=== PATIENT | male | born 1945 | race Two or more races ===

== ENCOUNTER 2020-05-07 23:48 | Inpatient (IN) | payer MEDICARE, OTHER ==
[~2020-05-07] VITALS: Ht 170.2 cm; Wt 84.0 kg
[2020-05-07 23:50] VITALS: BP 90/41
--- NOTE | 2020-05-08 00:05 | Emergency Room Report ---
History of Present Illness General Chief Complaint: Generalized Weakness Source: Patient, EMS Present Illness HPI This is a 75-year-old male with a history of high blood pressure but not on blood pressure medication. He also history of diabetes and renal failure on hemodialysis. Dialysis days are Friday, Friday, and Friday. He presents with chief complaint of weakness and hypotension. Per EMS, his house is very hot. Patient does not have air conditioning. Patient complained of generalized weakness. No fever chills but no cough or congestion. Said his blood pressure was low. EMS said his blood pressure was systolic in the 90s at home. Allergies: Coded Allergies: No Known Allergies (Unverified , 05/07/20) COVID-19 Screening Contact w/high risk pt: No Experienced COVID-19 symptoms?: No COVID-19 Testing performed IMPORT/EXPORT ADMINISTRATOR: No Patient History Past Medical History: see triage record, old chart reviewed, DM, HTN, renal disease, dialysis Past Surgical History: other Pertinent Family History: none Social History: Denies: smoking Immunizations: other Reviewed Nursing Documentation: PMH: Agreed; PSxH: Agreed Nursing Documentation-PMH Hx Cardiac Problems: Yes Hx Hypertension: Yes Hx Diabetes: Yes Hx Dialysis: Yes - T, TR, sat Review of Systems Constitutional: Reports: malaise, weakness Eye: Denies: eye pain, blurred vision ENT: Denies: ear pain, nose congestion, throat swelling Respiratory: Denies: cough, shortness of breath Cardiovascular: Denies: chest pain, palpitations Gastrointestinal: Denies: abdominal pain, diarrhea, nausea, vomiting Musculoskeletal: Denies: back pain, joint pain Skin: Denies: rash Neurological: Denies: headache, numbness Endocrine: Denies: increased thirst, increased urine Hematologic/Lymphatic: Denies: easy bruising All Other Systems: negative except mentioned in HPI Physical Exam Vital Signs Date Time Temp Pulse Resp B/P (MAP) Pulse Ox O2 Delivery O2 Flow Rate FiO2 05/07/20 23:47 98.6 60 14 96/48 (64) 92 Nasal Cannula 2.0 Vitals with hypotension Sp02 EP Interpretation: reviewed, normal General Appearance: well appearing, no apparent distress, alert, Chronically Ill Head: normocephalic, atraumatic Eyes: bilateral eye PERRL, bilateral eye EOMI ENT: hearing grossly normal, normal pharynx Neck: full range of motion, supple, no meningismus Respiratory: chest non-tender, lungs clear, normal breath sounds Cardiovascular #1: regular rate, rhythm, no murmur Gastrointestinal: normal bowel sounds, non tender, no mass, no organomegaly, no bruit, non-distended Musculoskeletal: back normal, normal range of motion Psychiatric: mood/affect normal Medical Decision Making Diagnostic Impression: Primary Impression: Episode of generalized weakness Additional Impressions: Heat exhaustion Qualified Codes: T67.5XXA - Heat exhaustion, unspecified, initial encounter Transient hypotension ESRD (end stage renal disease) on dialysis ER Course Patient presents with generalized weakness and transient hypotension. There is no evidence of any infection going on. His blood pressure is now 108/50 5:02 100 cc IV bolus. He is 100% on room air. COVID testing is negative. I suspect this symptom is secondary to heat exhaustion. We're in the midst of a very strong heat wave with temperature over 100 degree. He has no air conditioning. EMS said his house was extremely hot. He said he felt better here. Will admit for monitoring. He is scheduled for dialysis tomorrow. I contacted Dr. Forrest for admission. EKG Diagnostic Results Rate: normal Rhythm: NSR ST Segments: no acute changes Rhythm Strip Diag. Results EP Interpretation: yes Rate: 73 Rhythm: NSR, no PVC's, no ectopy Chest X-Ray Diagnostic Results Chest X-Ray Diagnostic Results : Chest X-Ray Ordered: Yes # of Views/Limited/Complete: 1 View Indication: Shortness of Breath EP Interpretation: Yes Interpretation: no consolidation, no effusion, no pneumothorax, other - Cardiomegaly with atelectasis Impression: Other - CM with atelectasis Electronically Signed by: Mahin Osullivan MD Last Vital Signs Date Time Temp Pulse Resp B/P (MAP) Pulse Ox O2 Delivery O2 Flow Rate FiO2 05/07/20 23:47 98.6 60 14 96/48 (64) 92 Nasal Cannula 2.0 Status: improved Disposition: ADMITTED INPATIENT Condition: Serious Mahin Osullivan MD May 08, 2020 00:04
[2020-05-08 00:22] LABS: BASOPHILS % (AUTO) 1.3 % (0.0-2.0); EOSINOPHILS % (AUTO) 0.3 % (0.0-3.0); HEMATOCRIT 37.4 % (42.0-52.0); HEMOGLOBIN 11.5 G/DL (14.2-18.0); LYMPHOCYTES % (AUTO) 23.8 % (20.0-45.0); MEAN CORPUSCULAR VOLUME 106 FL (80-99); MONOCYTES % (AUTO) 13.4 % (1.0-10.0); NEUTROPHILS % (AUTO) 61.2 % (45.0-75.0); PLATELET COUNT 304 K/UL (150-450); RED BLOOD COUNT 3.53 M/UL (4.70-6.10); WHITE BLOOD COUNT 8.3 K/UL (4.8-10.8)
[2020-05-08 00:26] LABS: ANION GAP 12 mmol/L (5-15); BLOOD UREA NITROGEN 40 mg/dL (7-18); CALCIUM 8.1 MG/DL (8.5-10.1); CARBON DIOXIDE 28 MMOL/L (21-32); CHLORIDE 103 MMOL/L (98-107); CREATININE 8.2 MG/DL (0.55-1.30); POTASSIUM 4.2 MMOL/L (3.5-5.1); SODIUM 143 MMOL/L (136-145)
[2020-05-08] MEDS ORDERED: PLAVIX75 MG ORAL (01:42)
[2020-05-08] MEDS ORDERED: ADALAT10 MG ORAL (01:43)
[2020-05-08] MEDS ORDERED: DOXAZOSIN MESYLA1 MG ORAL (01:45)
[2020-05-08] MEDS ORDERED: METFORMIN HCL500 M1 ORAL (01:47)
[2020-05-08 04:13] VITALS: BP 112/53
--- NOTE | 2020-05-08 06:32 | Diagnostic Imaging Report ---
EXAM: XR Chest, 1 View CLINICAL HISTORY: SOB TECHNIQUE: Frontal view of the chest. COMPARISON: No relevant prior studies available. FINDINGS/IMPRESSION: Linear metal atelectasis within the left midlung field. Poor inspiration which accentuates bronchovascular marking and cardiac silhouette size. No definite pleural effusion or pneumothorax. Cardiomegaly. Calcified aorta.
[2020-05-08 08:00] VITALS: BP 88/46
[2020-05-08] MEDS: Heparin 5000 units/ml inj SUBQ SCH ×2 (08:43→20:43)
[2020-05-08] MEDS ORDERED: Doxazosin 1mg Tab ORAL SCH (09:00)
[2020-05-08] MEDS ORDERED: metFORMIN 500mg tab ORAL SCH (09:00)
--- NOTE | 2020-05-08 10:00 | History and Physical Report ---
DATE OF ADMISSION: 05/08/2020 CHIEF COMPLAINT: Dizziness and dehydration. HISTORY OF PRESENT ILLNESS: The patient is a 75-year-old male. He has a history of end-stage renal disease, on hemodialysis for the last month. He presented from home with complaints of generalized malaise and weakness. He states that he does not have air conditioning, his house has been incredibly hot. He last received dialysis on Friday. He was noted to be hypotensive in the field. In the ER, he was 96/48. He was felt to have possibly early heat stroke. He was given IV hydration and is now admitted for further evaluation and care. PAST MEDICAL HISTORY: As above, history of diabetes. PAST SURGICAL HISTORY: None, except for a left upper extremity AV fistula. CURRENT MEDICATIONS: The patient does not recall. ALLERGIES: None. FAMILY HISTORY: None. SOCIAL HISTORY: Negative for tobacco, ethanol, or drugs. REVIEW OF SYSTEMS: GENERAL: No fevers or chills. Positive malaise and weakness. HEENT: No headaches or visual changes. CARDIOPULMONARY: No chest pain or shortness of breath. GASTROINTESTINAL: No nausea or vomiting. GENITOURINARY: No urgency or frequency. MUSCULOSKELETAL: No joint pain or swelling. NEUROLOGIC: No evidence of seizures. PHYSICAL EXAMINATION: VITAL SIGNS: Temperature 98.6, pulse 60, respirations 14, and blood pressure 96/48. GENERAL: The patient is a well-developed male, in no apparent distress. He is somewhat drowsy, but is easily arousable and does answer questions and follow commands. HEENT: Head is normocephalic and atraumatic. Oropharynx clear. Mucous membranes are dry. NECK: Supple. HEART: Regular rate and rhythm. LUNGS: Clear. ABDOMEN: Soft, nontender and nondistended. EXTREMITIES: No clubbing or cyanosis. There is a large wound on the left first toe as well as on the left lee. LABORATORY DATA: Sodium 142, potassium 4.2, creatinine 8.2. White count 8, hemoglobin 11, hematocrit 37, and platelets 304,000. ASSESSMENT: This is a 75-year-old male with a history of end-stage renal disease, admitted with complaints of dehydration, possible early heat stroke. PLAN: 1. Cautious hydration. 2. Renal consultation. 3. X-ray of right foot and right leg. 4. Check vascular studies. 5. Podiatry consultation will be obtained. Ulises Forrest M.D. DR: Devan JOB#: [id number] CC:
[2020-05-08 12:00] VITALS: BP 89/41
[2020-05-08] MEDS ORDERED: NIFEdipine 10mg cap ORAL SCH (12:00)
[2020-05-08] MEDS: NIFEdipine 10mg cap ORAL SCH ×2 (12:00→17:28)
--- NOTE | 2020-05-08 12:09 | Diagnostic Imaging Report ---
EXAM: US Duplex Bilateral Lower Extremities Arteries CLINICAL HISTORY: Pain TECHNIQUE: Real-time duplex ultrasound scan of the bilateral lower extremity arteries integrating B-mode two-dimensional vascular structure, Doppler spectral analysis and color flow Doppler imaging. COMPARISON: None FINDINGS: Diffuse atherosclerosis in the visualized arterial segments throughout bilateral lower extremities. Right common femoral artery: No occlusion or significant stenosis on color flow and spectral Doppler imaging. Peak systolic velocity of 56 cm/s. Normal multiphasic waveform. Right superficial femoral artery: No occlusion or significant stenosis on color flow and spectral Doppler imaging. Peak systolic velocity of 64 cm/s. Normal multiphasic waveform. Right popliteal artery: No occlusion or significant stenosis on color flow and spectral Doppler imaging. Peak systolic velocity of 58 cm/s. Normal multiphasic waveform. Right calf/foot arteries: Right calf/foot were completely covered with dressings and unable to evaluate. Left common femoral artery: No occlusion or significant stenosis on color flow and spectral Doppler imaging. Peak systolic velocity of 54 cm/s. Normal multiphasic waveform. Left superficial femoral artery: No occlusion or significant stenosis on color flow and spectral Doppler imaging. Peak systolic velocity of 68 cm/s. Normal multiphasic waveform. Left popliteal artery: No occlusion or significant stenosis on color flow and spectral Doppler imaging. Peak systolic velocity of 40 cm/s. Normal multiphasic waveform. Left calf/foot arteries: No occlusion or significant stenosis on color flow and spectral Doppler imaging. Monophasic waveform. Soft tissues: Unremarkable. Degree of stenosis-estimate 30-50%: 150-200 cm/s 50-75%: 200-400 cm/s >75%: >400 cm/s and monophasic waveform IMPRESSION: 1. Diffuse atherosclerosis in bilateral lower extremities, consistent with peripheral vascular disease. No significant focal stenosis in the visualized arterial segments bilaterally. 2. Unable to evaluate the right calf/foot arteries since the right lower extremity was completely covered in dressings and communications field technician was unable to image the calf/foot vessels.
[2020-05-08 16:00] VITALS: BP 101/52
[2020-05-08] MEDS: HYDROcodone/Acetamin 10/325 tab ORAL PRN (17:51)
[2020-05-08 19:52] VITALS: BP 103/51
--- NOTE | 2020-05-08 20:00 | Consultation ---
DATE OF CONSULTATION: 05/08/2020 NEPHROLOGY CONSULTATION CONSULTING PHYSICIAN: Quinn Marcano MD. REASON FOR CONSULTATION: End-stage renal disease, episode of hypotension. HISTORY OF PRESENT ILLNESS: Patient has end-stage renal disease, on dialysis with a history of diabetes and peripheral vascular disease and ischemic toe on the right foot. He has had prior PCI to the right leg arterial system. He has a history of prior [place] about 5 years ago and a prior CVA. He is a poor historian. Records are reviewed from [facility]. He has also had paroxysmal atrial fibrillation, hypothyroidism, diabetes. ALLERGIES: None known. PAST SURGICAL HISTORY: Left upper arm AV fistula, PCI to the right leg. HABITS: He is a former heavy alcohol user. Quit a few years ago. Denies smoking. MEDICATIONS: Cannot give an adequate medications list. From the hospitalization in September of this year at [facility], he was on amiodarone, Plavix, DSS, Lexapro, Synthroid, nifedipine, and Tradjenta. He is not sure if he takes all or some of these currently. SYSTEM REVIEW: HEAD, EYES, EARS, NOSE, AND THROAT: He states his vision and hearing is good. ENDOCRINE: Diabetes and hypothyroidism as above. PULMONARY: No asthma, TB, or chronic cough. CARDIAC: Prior FL. No current chest pain. No shortness of breath or palpitations. He has had paroxysmal atrial fibrillation in the past. GASTROINTESTINAL: Denies GI bleeding, nausea or vomiting. However, he had generalized weakness and was exposed to a very hot weather without air conditioning at home. GENITOURINARY: He makes little urine. NEUROLOGIC: He had a prior CVA with minimal residual. PHYSICAL EXAMINATION: GENERAL: Patient is alert, obese man, lying in bed, in no acute distress. VITAL SIGNS: Temperature 97.8, pulse 57, respirations 20, blood pressure 89/41. HEAD, EYES, EARS, NOSE, AND THROAT: Sclerae are nonicteric. Ocular motions intact in all directions. Oral mucosa is moist. NECK: No adenopathy. LUNGS: Clear. HEART: Rhythm is regular. I hear no murmur. ABDOMEN: Obese and soft. No organomegaly. EXTREMITIES: No edema. The right leg has a large bulky dressing with the right great toe has ulcer about 1 to 1-1/2 centimeters with some skin necrosis. He has an AV fistula on his left arm. NEUROLOGIC: He is alert and responsive. No focal weakness. LABORATORY DATA: Reviewed. IMPRESSION: 1. End-stage renal disease. 2. Hypotensive episode, likely due to nifedipine plus heat exposure, mild dehydration improving. 3. History of paroxysmal atrial fibrillation. 4. History of coronary artery disease. 5. History of peripheral vascular disease. 6. History of diabetes. PLAN: All laboratories are reviewed. We will anticipate that his blood pressure will improve with holding of antihypertensive medications for now and he appears to be euvolemic. Dialysis as scheduled. We will resume his amiodarone and Plavix and Synthroid. Quinn Marcano M.D. DR: ALFONSO JOB#: [id number] CC:
[2020-05-09] VITALS: BP 106/52
[2020-05-09 04:00] VITALS: BP 109/54
[2020-05-09] MEDS: sitaGLIPtin 25mg tab ORAL SCH (05:37)
[2020-05-09] MEDS ORDERED: Heparin Sod 1000 units/ml 10ml IV SCH (06:00)
[2020-05-09 07:16] LABS: ALANINE AMINOTRANSFERASE 27 U/L (12-78); ALBUMIN 2.6 G/DL (3.4-5.0); ALBUMIN/GLOBULIN RATIO 0.5 (1.0-2.7); ALKALINE PHOSPHATASE 54 U/L (46-116); ANION GAP 12 mmol/L (5-15); ASPARTATE AMINO TRANSFERASE 58 U/L (15-37); BILIRUBIN,TOTAL 1.1 MG/DL (0.2-1.0); BLOOD UREA NITROGEN 54 mg/dL (7-18); CARBON DIOXIDE 27 MMOL/L (21-32); CHLORIDE 103 MMOL/L (98-107); CREATININE 10.9 MG/DL (0.55-1.30); POTASSIUM 4.5 MMOL/L (3.5-5.1); SODIUM 142 MMOL/L (136-145)
[2020-05-09 07:26] LABS: BILIRUBIN,DIRECT 0.5 MG/DL (0.0-0.3)
--- NOTE | 2020-05-09 07:39 | General Progress Note ---
Assessment/Plan Problem List: (1) Foot ulcer ICD Codes: L97.509 - Non-pressure chronic ulcer of other part of unspecified foot with unspecified severity SNOMED: 59129420 (2) ESRD (end stage renal disease) on dialysis ICD Codes: N18.6 - End stage renal disease; Z99.2 - Dependence on renal dialysis SNOMED: 559480223 (3) Heat exhaustion ICD Codes: T67.5XXA - Heat exhaustion, unspecified, initial encounter SNOMED: 31951249 Qualifiers: Qualified Codes: T67.5XXA - Heat exhaustion, unspecified, initial encounter (4) Episode of generalized weakness ICD Codes: R53.1 - Weakness SNOMED: 48495168 (5) Transient hypotension ICD Codes: I95.9 - Hypotension, unspecified SNOMED: 89778072304323 Status: stable Assessment/Plan: podiatry and wound evals dc cardura MRi toe- r/o osteo check orthostatics consider midodrine if bp low or orthostatic HD per renal check lipids and a1c Subjective ROS Limited/Unobtainable: No Constitutional: Reports: malaise, weakness HEENT: Reports: no symptoms Cardiovascular: Reports: no symptoms Respiratory: Reports: no symptoms Gastrointestinal/Abdominal: Reports: no symptoms Genitourinary: Reports: no symptoms Neurologic/Psychiatric: Reports: no symptoms Endocrine: Reports: no symptoms Hematologic/Lymphatic: Reports: no symptoms Allergies: Coded Allergies: No Known Allergies (Unverified , 05/07/20) All Systems: reviewed and negative except above Subjective no complaints. bp still running on the low side. no fevers or chills. no chest pain vascular studies normal. scheduled for HD today Objective Last 24 Hour Vital Signs Date Time Temp Pulse Resp B/P (MAP) Pulse Ox O2 Delivery O2 Flow Rate FiO2 05/09/20 04:00 98.5 61 18 109/54 (72) 94 05/09/20 00:00 98.5 60 18 106/52 (70) 93 05/08/20 21:00 Room Air 05/08/20 19:52 97.8 57 16 103/51 (68) 93 05/08/20 18:21 98.4 05/08/20 17:28 58 101/52 05/08/20 16:00 98.4 58 21 101/52 (68) 97 05/08/20 12:00 57 89/41 05/08/20 12:00 97.8 57 20 89/41 (57) 97 05/08/20 09:00 Room Air 05/08/20 08:00 98.3 57 21 88/46 (60) 97 Intake and Output 05/08/20 05/09/20 19:00 07:00 Intake Total 1020 ml 200 ml Output Total 3 ml 400 ml Balance 1017 ml -200 ml Intake Oral 1020 ml 200 ml Output Urine Total 3 ml 400 ml # Bowel Movements 2 Laboratory Tests 05/09/20 04:50: Sodium Level 142, Potassium Level 4.5, Chloride Level 103, Carbon Dioxide Level 27, Anion Gap 12, Blood Urea Nitrogen 54H, Creatinine 10.9H, Estimat Glomerular Filtration Rate 4.6, Glucose Level 66L, Calcium Level 8.0L, Total Bilirubin 1.1H , Direct Bilirubin 0.5H, Aspartate Amino Transf (AST/SGOT) 58H, Alanine Aminotransferase (ALT/SGPT) 27, Alkaline Phosphatase 54, Total Protein 7.8, Albumin 2.6L, Globulin 5.2, Albumin/Globulin Ratio 0.5L Height (Feet): 5 Height (Inches): 7.00 Weight (Pounds): 184 General Appearance: WD/WN, alert Neck: supple Cardiovascular: normal rate Respiratory/Chest: chest wall non-tender, lungs clear, normal breath sounds Abdomen: normal bowel sounds, non tender, soft, no organomegaly Edema: no edema noted Arm (L), no edema noted Arm (R) Neurologic: product expert II-XII grossly normal, alert, oriented x 3, responsive Skin: other - right 1st toe ulcer anbd right shink ulcer Ulises Forrest MD May 09, 2020 07:39
[2020-05-09 08:00] VITALS: BP_SYST 101; BP_SYST 102; BP_SYST 105; BP_SYST 112; BP_DIAS 50; BP_DIAS 55; BP_DIAS 65; BP_DIAS 71
[2020-05-09 08:21] LABS: CHOLESTEROL 109 MG/DL (< 200); HDL CHOLESTEROL 12 MG/DL (40-60); TRIGLYCERIDES 181 MG/DL (30-150)
[2020-05-09] MEDS: Heparin 5000 units/ml inj SUBQ SCH ×2 (08:53→20:57)
[2020-05-09] MEDS: Amiodarone 200mg tab ORAL SCH (08:53)
[2020-05-09] MEDS ORDERED: Doxazosin 1mg Tab ORAL SCH (09:00)
[2020-05-09] MEDS: HYDROcodone/Acetamin 10/325 tab ORAL PRN (10:01)
[2020-05-09 12:00] VITALS: BP 103/77
--- NOTE | 2020-05-09 12:35 | Consultation ---
History of Present Illness General Date patient seen: May 09, 2020 Reason for Hospitalization: Generalized Weakness Present Illness HPI This is a 75-year-old male with a history of HTN poorly controlled, diabetes and renal failure on hemodialysis Friday, Friday, and Friday. He presents with chief complaint of weakness and hypotension. Per EMS, his house is very hot. Patient does not have air conditioning. Patient complained of generalized weakness. No fever chills but no cough or congestion. Admitted for further care and management. On admission complaining of right lower extremity pain. Identified to have a large wound in the medial aspect of the right distal leg as well as necrosis of the distal great toe. Surgery called to eval and assist with care. Patient seen, patient [place], chart reviewed. Patient states he has a wound care nurse coming to his home caring for the wound. States he is out of for some time now. States he continues to have pain. Allergies: Coded Allergies: No Known Allergies (Unverified , 05/07/20) COVID-19 Screening Contact w/high risk pt: No Experienced COVID-19 symptoms?: No Medication History Scheduled Clopidogrel Bisulfate* (Plavix*), 75 MG ORAL DAILY, (Reported) Doxazosin Mesylate* (Doxazosin Mesylate*), 1 MG ORAL DAILY, (Reported) Metformin Hcl* (Metformin Hcl*), 500 MG ORAL TWICE A DAY, (Reported) Nifedipine (Nifedipine*), 10 MG ORAL EVERY 6 HOURS, (Reported) Patient History History Provided By: Patient, Medical Record, PMD Healthcare decision maker Resuscitation status Advanced Directive on File Past Medical/Surgical History Past Medical/Surgical History: (1) ESRD (end stage renal disease) on dialysis (2) Heat exhaustion (3) Foot ulcer (4) Episode of generalized weakness (5) Transient hypotension Review of Systems Review of Symptoms General ROS: no weight loss or fever Psychological ROS: no depression or mood changes, no memory loss Ophthalmic ROS: no visual changes or eye irritation ENT ROS: no nasal congestion, hearing loss, dizziness Allergy and Immunology ROS: no allergic symptoms or urticaria Hematological and Lymphatic ROS: no swollen glands, unusual bleeding or bruising Endocrine ROS: no polyuria, polydipsia, weight changes, temperature intolerance Respiratory ROS: no cough, shortness of breath, or wheezing Cardiovascular ROS: no chest pain or dyspnea on exertion Gastrointestinal ROS: denies abdominal pain, bright red blood in stool. Musculoskeletal ROS: no myalgias or arthralgias Neurological ROS: no TIA or stroke symptoms Dermatological ROS: no new or changing skin lesions, rashes or pruritis Physical Exam Physical Exam General appearance: alert, cooperative, no distress, appears stated age Head: Normocephalic, without obvious abnormality, atraumatic Eyes: conjunctivae/corneas clear. PERRL, EOM's intact. Fundi benign Throat: Lips, mucosa, and tongue normal. Teeth and gums normal Neck: supple, symmetrical, trachea midline, no adenopathy, thyroid: not enlarged, symmetric, no tenderness/mass/nodules, no carotid bruit and no JVD Lungs: clear to auscultation bilaterally Heart: regular rate and rhythm, S1, S2 normal, no murmur, click, rub or gallop Abdomen: soft, non-tender. Bowel sounds normal. No masses, no organomegaly Extremities: extremities see below Pulses:decreased symmetric Skin: Skin color, texture, turgor normal. No rashes or lesions Neurologic: Grossly normal Last 24 Hour Vital Signs Date Time Temp Pulse Resp B/P (MAP) Pulse Ox O2 Delivery O2 Flow Rate FiO2 05/09/20 12:00 97.1 72 21 103/77 (86) 97 05/09/20 10:31 98.7 05/09/20 09:00 75 66 65 05/09/20 09:00 Room Air 05/09/20 08:00 98.7 66 19 102/71 (81) 97 05/09/20 08:00 98.7 75 19 105/65 (78) 97 05/09/20 08:00 98.7 65 19 101/50 (67) 97 05/09/20 08:00 98.7 62 19 112/55 (74) 97 05/09/20 04:00 98.5 61 18 109/54 (72) 94 05/09/20 00:00 98.5 60 18 106/52 (70) 93 05/08/20 21:00 Room Air 05/08/20 19:52 97.8 57 16 103/51 (68) 93 05/08/20 17:28 58 101/52 05/08/20 16:00 98.4 58 21 101/52 (68) 97 Intake and Output 05/08/20 05/09/20 19:00 07:00 Intake Total 1020 ml 200 ml Output Total 3 ml 400 ml Balance 1017 ml -200 ml Intake Oral 1020 ml 200 ml Output Urine Total 3 ml 400 ml # Bowel Movements 2 Laboratory Tests Test 05/09/20 04:50 Sodium Level 142 MMOL/L (136-145) Potassium Level 4.5 MMOL/L (3.5-5.1) Chloride Level 103 MMOL/L (98-107) Carbon Dioxide Level 27 MMOL/L (21-32) Anion Gap 12 mmol/L (5-15) Blood Urea Nitrogen 54 mg/dL (7-18) H Creatinine 10.9 MG/DL (0.55-1.30) H Estimat Glomerular Filtration Rate 4.6 mL/min (>60) Glucose Level 66 MG/DL (74-106) L Hemoglobin A1c 5.4 % (4.3-6.0) Calcium Level 8.0 MG/DL (8.5-10.1) L Total Bilirubin 1.1 MG/DL (0.2-1.0) H Direct Bilirubin 0.5 MG/DL (0.0-0.3) H Aspartate Amino Transf (AST/SGOT) 58 U/L (15-37) H Alanine Aminotransferase (ALT/SGPT) 27 U/L (12-78) Alkaline Phosphatase 54 U/L (46-116) Total Protein 7.8 G/DL (6.4-8.2) Albumin 2.6 G/DL (3.4-5.0) L Globulin 5.2 g/dL Albumin/Globulin Ratio 0.5 (1.0-2.7) L Triglycerides Level 181 MG/DL (30-150) H Cholesterol Level 109 MG/DL (< 200) LDL Cholesterol 53 mg/dL (<100) HDL Cholesterol 12 MG/DL (40-60) L Cholesterol/HDL Ratio 9.1 (3.3-4.4) H Hepatitis B Surface Antigen Pending Height (Feet): 5 Height (Inches): 7.00 Weight (Pounds): 184 Medications Current Medications Medications (Trade) Dose Ordered Sig/Vinny Route PRN Reason Start Time Stop Time Status Last Admin Dose Admin Acetaminophen/ Hydrocodone Bitart ([place] 10/325) 1 tab Q4H PRN ORAL For Pain 05/08/20 06:30 05/15/20 06:29 05/09/20 10:01 Amiodarone HCl (Cordarone) 200 mg DAILY ORAL 05/09/20 09:00 08/07/20 08:59 05/09/20 08:53 Clopidogrel Bisulfate (Plavix) 75 mg DAILY ORAL 05/08/20 09:00 06/07/20 08:59 05/09/20 08:54 Heparin Sodium (Porcine) (Heparin 5000 units/ml) 5,000 units EVERY 12 HOURS SUBQ 05/08/20 09:00 06/22/20 08:59 05/09/20 08:53 Heparin Sodium (Porcine) (Heparin Sod 1000 units/ml 10ml) 500 unit ONCE IV 05/09/20 06:00 05/09/20 23:00 Levothyroxine Sodium (Synthroid) 50 mcg DAILY@0630 ORAL 05/09/20 06:30 06/08/20 06:29 05/09/20 05:37 Sitagliptin Phosphate (Januvia) 25 mg ACBREAKFAST ORAL 05/09/20 06:30 06/08/20 06:29 05/09/20 05:37 Sodium Chloride 1,000 ml @ 500 mls/hr Q2H PRN IVLG sbp<90 during hd 05/09/20 19:30 06/08/20 19:29 Assessment/Plan Problem List: (1) Diabetic ulcer of right lower leg Assessment & Plan: Patient with a diabetic ischemic ulcer right lower extremity medial aspect distal. Wound is fairly chronic and is receiving care at home and guidance of a wound team. Currently no active drainage. Dermal loss with some necrosis. Area approximately 10 cm x 5 cm few millimeters deep. Fortunately no exposed tendon or muscle. No signs of active infection. Wash lower extremity daily with normal saline. Apply Thera honey followed by nonadherent dressing and wrap with gauze. keep extremity elevated when possible nutritional optimization DM control ICD Codes: E11.622 - Type 2 diabetes mellitus with other skin ulcer; L97.919 - Non-pressure chronic ulcer of unspecified part of right lower leg with unspecified severity SNOMED: 50321099, 884121074, 815708754 (2) ESRD (end stage renal disease) on dialysis ICD Codes: N18.6 - End stage renal disease; Z99.2 - Dependence on renal dialysis SNOMED: 284745738 (3) Heat exhaustion ICD Codes: T67.5XXA - Heat exhaustion, unspecified, initial encounter SNOMED: 72529417 Qualifiers: Qualified Codes: T67.5XXA - Heat exhaustion, unspecified, initial encounter (4) Foot ulcer Assessment & Plan: out pt vascular eval for angio Diffuse atherosclerosis in the visualized arterial segments throughout bilateral lower extremities. Right common femoral artery: No occlusion or significant stenosis on color flow and spectral Doppler imaging. Peak systolic velocity of 56 cm/s. Normal multiphasic waveform. Right superficial femoral artery: No occlusion or significant stenosis on color flow and spectral Doppler imaging. Peak systolic velocity of 64 cm/s. Normal multiphasic waveform. Right popliteal artery: No occlusion or significant stenosis on color flow and spectral Doppler imaging. Peak systolic velocity of 58 cm/s. Normal multiphasic waveform. Right calf/foot arteries: Right calf/foot were completely covered with dressings and unable to evaluate. Left common femoral artery: No occlusion or significant stenosis on color flow and spectral Doppler imaging. Peak systolic velocity of 54 cm/s. Normal multiphasic waveform. Left superficial femoral artery: No occlusion or significant stenosis on color flow and spectral Doppler imaging. Peak systolic velocity of 68 cm/s. Normal multiphasic waveform. Left popliteal artery: No occlusion or significant stenosis on color flow and spectral Doppler imaging. Peak systolic velocity of 40 cm/s. Normal multiphasic waveform. Left calf/foot arteries: No occlusion or significant stenosis on color flow and spectral Doppler imaging. Monophasic waveform. Soft tissues: Unremarkable. Degree of stenosis-estimate 30-50%: 150-200 cm/s 50-75%: 200-400 cm/s >75%: >400 cm/s and monophasic waveform IMPRESSION: 1. Diffuse atherosclerosis in bilateral lower extremities, consistent with peripheral vascular disease. No significant focal stenosis in the visualized arterial segments bilaterally. 2. Unable to evaluate the right calf/foot arteries since the right lower extremity was completely covered in dressings and software quality test engineer was unable to image the calf/foot vessels. ICD Codes: L97.509 - Non-pressure chronic ulcer of other part of unspecified foot with unspecified severity SNOMED: 61498588 (5) Episode of generalized weakness ICD Codes: R53.1 - Weakness SNOMED: 21121341 (6) Transient hypotension ICD Codes: I95.9 - Hypotension, unspecified SNOMED: 09760514230713 William Howell May 09, 2020 12:35
--- NOTE | 2020-05-09 15:09 | Diagnostic Imaging Report ---
Indication: Large open wound on plantar surface of the big toe Technique: Axial, coronal, and sagittal T1 FSE and FSE STIR images of the forefoot Comparison: none Findings: Marker vargas the area of open wound on the plantar surface of the great toe below the interphalangeal joint. There is questionably mildly increased STIR signal at the periphery of the distal phalanx, without corresponding T1 abnormality. The proximal phalanx and the metatarsals demonstrate normal marrow signal. No marrow signal abnormality is seen in the remainder of the digits. The foot is diffusely edematous, most notably in the dorsal subcutaneous fat but also in the deeper soft tissues. No discrete fluid collections to suggest drainable abscess demonstrated. Impression: Mildly increased STIR signal within the first distal phalanx, without evidence of T1 signal abnormality. Most likely reactive, but could also represent very early osteomyelitis changes. No other marrow signal abnormality to suggest acute osteomyelitis Diffuse soft tissue edema. This could be on the basis of cellulitis or could represent edema due to hemodynamic derangements.
[2020-05-09 16:00] VITALS: BP 134/69
--- NOTE | 2020-05-09 18:33 | Consultation ---
History of Present Illness General Date patient seen: May 09, 2020 Chief Complaint: Diabetic foot ulcer Referring physician: Ulises Forrest MD Reason for Consultation: Diabetic foot ulcer Present Illness HPI Pt seen at bedside inad for evaluation of diabetic foot ulcer. Pt unable to provide clear or detailed history but states wound is getting better and is fine today. Pt denies current pain from right big toe or medial right leg. Pt denies f/c/n/v. Allergies: Coded Allergies: No Known Allergies (Unverified , 05/07/20) Medication History Scheduled Clopidogrel Bisulfate* (Plavix*), 75 MG ORAL DAILY, (Reported) Doxazosin Mesylate* (Doxazosin Mesylate*), 1 MG ORAL DAILY, (Reported) Metformin Hcl* (Metformin Hcl*), 500 MG ORAL TWICE A DAY, (Reported) Nifedipine (Nifedipine*), 10 MG ORAL EVERY 6 HOURS, (Reported) Patient History Healthcare decision maker Resuscitation status Advanced Directive on File Past Medical/Surgical History Past Medical/Surgical History: (1) ESRD (end stage renal disease) on dialysis (2) Heat exhaustion (3) Episode of generalized weakness (4) Transient hypotension Physical Exam General Appearance: WD/WN, no apparent distress Last 24 Hour Vital Signs Date Time Temp Pulse Resp B/P (MAP) Pulse Ox O2 Delivery O2 Flow Rate FiO2 05/09/20 16:00 98.3 91 21 134/69 (90) 97 05/09/20 12:00 97.1 72 21 103/77 (86) 97 05/09/20 10:31 98.7 05/09/20 09:00 75 66 65 05/09/20 09:00 Room Air 05/09/20 08:00 98.7 66 19 102/71 (81) 97 05/09/20 08:00 98.7 75 19 105/65 (78) 97 05/09/20 08:00 98.7 65 19 101/50 (67) 97 05/09/20 08:00 98.7 62 19 112/55 (74) 97 05/09/20 04:00 98.5 61 18 109/54 (72) 94 05/09/20 00:00 98.5 60 18 106/52 (70) 93 05/08/20 21:00 Room Air 05/08/20 19:52 97.8 57 16 103/51 (68) 93 Intake and Output 05/08/20 05/09/20 19:00 07:00 Intake Total 1020 ml 200 ml Output Total 3 ml 400 ml Balance 1017 ml -200 ml Intake Oral 1020 ml 200 ml Output Urine Total 3 ml 400 ml # Bowel Movements 2 Laboratory Tests Test 05/09/20 04:50 Sodium Level 142 MMOL/L (136-145) Potassium Level 4.5 MMOL/L (3.5-5.1) Chloride Level 103 MMOL/L (98-107) Carbon Dioxide Level 27 MMOL/L (21-32) Anion Gap 12 mmol/L (5-15) Blood Urea Nitrogen 54 mg/dL (7-18) H Creatinine 10.9 MG/DL (0.55-1.30) H Estimat Glomerular Filtration Rate 4.6 mL/min (>60) Glucose Level 66 MG/DL (74-106) L Hemoglobin A1c 5.4 % (4.3-6.0) Calcium Level 8.0 MG/DL (8.5-10.1) L Total Bilirubin 1.1 MG/DL (0.2-1.0) H Direct Bilirubin 0.5 MG/DL (0.0-0.3) H Aspartate Amino Transf (AST/SGOT) 58 U/L (15-37) H Alanine Aminotransferase (ALT/SGPT) 27 U/L (12-78) Alkaline Phosphatase 54 U/L (46-116) Total Protein 7.8 G/DL (6.4-8.2) Albumin 2.6 G/DL (3.4-5.0) L Globulin 5.2 g/dL Albumin/Globulin Ratio 0.5 (1.0-2.7) L Triglycerides Level 181 MG/DL (30-150) H Cholesterol Level 109 MG/DL (< 200) LDL Cholesterol 53 mg/dL (<100) HDL Cholesterol 12 MG/DL (40-60) L Cholesterol/HDL Ratio 9.1 (3.3-4.4) H Hepatitis B Surface Antigen Pending Height (Feet): 5 Height (Inches): 7.00 Weight (Pounds): 184 Medications Current Medications Medications (Trade) Dose Ordered Sig/Vinny Route PRN Reason Start Time Stop Time Status Last Admin Dose Admin Acetaminophen/ Hydrocodone Bitart ([place] 10/325) 1 tab Q4H PRN ORAL For Pain 05/08/20 06:30 05/15/20 06:29 05/09/20 10:01 Amiodarone HCl (Cordarone) 200 mg DAILY ORAL 05/09/20 09:00 08/07/20 08:59 05/09/20 08:53 Clopidogrel Bisulfate (Plavix) 75 mg DAILY ORAL 05/08/20 09:00 06/07/20 08:59 05/09/20 08:54 Heparin Sodium (Porcine) (Heparin 5000 units/ml) 5,000 units EVERY 12 HOURS SUBQ 05/08/20 09:00 06/22/20 08:59 05/09/20 08:53 Heparin Sodium (Porcine) (Heparin Sod 1000 units/ml 10ml) 500 unit ONCE IV 05/09/20 06:00 05/09/20 23:00 Levothyroxine Sodium (Synthroid) 50 mcg DAILY@0630 ORAL 05/09/20 06:30 06/08/20 06:29 05/09/20 05:37 Sitagliptin Phosphate (Januvia) 25 mg ACBREAKFAST ORAL 05/09/20 06:30 06/08/20 06:29 05/09/20 05:37 Sodium Chloride 1,000 ml @ 500 mls/hr Q2H PRN IVLG sbp<90 during hd 05/09/20 19:30 06/08/20 19:29 Objective Narrative Vasc: DP/PT 1/4 B/L, CFT 5-10 secs b/l Neuro: Light touch intact b/l, pt defers further neurological exam at this time. MSK: Limited non-painful rom b/l ft and ankles, including right AJ and 1st MPJ. Tenderness to palpation of distal plantar medial right hallux at site of ulcer. Derm: Ulceration distal plantar medial right hallux, measuring approx 1 x 2 x 0.3 cm, with dry gangrenous eschar base, but no surrounding edema, erythema, warmth, odor, fluctuance, or discharge noted. Dressing intact to right leg. Pt refuses removal of dressing for evaluation. Duoderm intact to b/l heels. Thick, dystrophic, non-elongated nails x 10. No other hyperkeratotic or pre- ulcerative lesions noted b/l ft. MRI R ft reviewed Vascular studies reviewed Assessment/Plan Problem List: (1) ESRD (end stage renal disease) on dialysis ICD Codes: N18.6 - End stage renal disease; Z99.2 - Dependence on renal dialysis SNOMED: 316683719 (2) Heat exhaustion ICD Codes: T67.5XXA - Heat exhaustion, unspecified, initial encounter SNOMED: 51426465 Qualifiers: Qualified Codes: T67.5XXA - Heat exhaustion, unspecified, initial encounter (3) Foot ulcer ICD Codes: L97.509 - Non-pressure chronic ulcer of other part of unspecified foot with unspecified severity SNOMED: 04062875 (4) Episode of generalized weakness ICD Codes: R53.1 - Weakness SNOMED: 53016494 (5) Transient hypotension ICD Codes: I95.9 - Hypotension, unspecified SNOMED: 13724005462531 (6) Diabetic ulcer of right lower leg ICD Codes: E11.622 - Type 2 diabetes mellitus with other skin ulcer; L97.919 - Non-pressure chronic ulcer of unspecified part of right lower leg with unspecified severity SNOMED: 37359982, 072836471, 729550002 Assessment/Plan: DM with PVD, probable peripheral neuropathy, ulcers right hallux and right leg Reviewed diabetic foot care guidelines with patient. Recommend local wound care - cleanse ulcers with normal saline, apply therahoney and dry gauze dressing daily. Low likelihood of osteomyelitis per MRI. Continue conservative tx. No surgery indicated at this time. Thank you Dr. Forrest for this consultation. Marcelle Umaña DPM May 09, 2020 18:33
[2020-05-09 20:00] VITALS: BP 131/57
--- NOTE | 2020-05-09 20:46 | Nephrology Progress Note ---
Assessment/Plan Problem List: (1) ESRD (end stage renal disease) on dialysis (2) Heat exhaustion (3) Foot ulcer (4) Episode of generalized weakness (5) Transient hypotension (6) Diabetic ulcer of right lower leg Plan HD 05/09 bp better, mri noted, keep off nifedipine, Subjective Constitutional: Reports: weakness HEENT: Reports: no symptoms Genitourinary: Reports: no symptoms Neurologic/Psychiatric: Reports: no symptoms Objective Objective Last 24 Hour Vital Signs Date Time Temp Pulse Resp B/P (MAP) Pulse Ox O2 Delivery O2 Flow Rate FiO2 05/09/20 16:00 98.3 91 21 134/69 (90) 97 05/09/20 12:00 97.1 72 21 103/77 (86) 97 05/09/20 10:31 98.7 05/09/20 09:00 75 66 65 05/09/20 09:00 Room Air 05/09/20 08:00 98.7 66 19 102/71 (81) 97 05/09/20 08:00 98.7 75 19 105/65 (78) 97 05/09/20 08:00 98.7 65 19 101/50 (67) 97 05/09/20 08:00 98.7 62 19 112/55 (74) 97 05/09/20 04:00 98.5 61 18 109/54 (72) 94 05/09/20 00:00 98.5 60 18 106/52 (70) 93 05/08/20 21:00 Room Air Intake and Output 05/08/20 05/09/20 19:00 07:00 Intake Total 1020 ml 200 ml Output Total 3 ml 400 ml Balance 1017 ml -200 ml Intake Oral 1020 ml 200 ml Output Urine Total 3 ml 400 ml # Bowel Movements 2 Laboratory Tests 05/09/20 04:50: Sodium Level 142, Potassium Level 4.5, Chloride Level 103, Carbon Dioxide Level 27, Anion Gap 12, Blood Urea Nitrogen 54H, Creatinine 10.9H, Estimat Glomerular Filtration Rate 4.6, Glucose Level 66L, Hemoglobin A1c 5.4, Calcium Level 8.0L, Total Bilirubin 1.1H, Direct Bilirubin 0.5H, Aspartate Amino Transf (AST/SGOT) 58H, Alanine Aminotransferase (ALT/SGPT) 27, Alkaline Phosphatase 54, Total Protein 7.8, Albumin 2.6L, Globulin 5.2, Albumin/Globulin Ratio 0.5L, Triglycerides Level 181H, Cholesterol Level 109, LDL Cholesterol 53, HDL Cholesterol 12L, Cholesterol/HDL Ratio 9.1H, Hepatitis B Surface Antigen [ Pending] Height (Feet): 5 Height (Inches): 7.00 Weight (Pounds): 184 General Appearance: no apparent distress, obese Neck: normal alignment Cardiovascular: normal rate, regular rhythm Respiratory/Chest: lungs clear Abdomen: non tender Extremities: no edema, other - ulcer r 1 toe Neurologic: accuracy expert II-XII grossly normal Quinn Marcano MD May 09, 2020 20:46
--- NOTE | 2020-05-10 00:02 | Cardiology Progress Note ---
Subjective DATE OF SERVICE: May 09, 2020 C/O foot pain BP parameters now normalizing MRI negative for osteomyelitis Arterial duplex suboptimal due to dressings on wounds. lipid panel noted Objective Last 24 Hour Vital Signs Date Time Temp Pulse Resp B/P (MAP) Pulse Ox O2 Delivery O2 Flow Rate FiO2 05/09/20 21:00 67 63 63 05/09/20 21:00 Room Air 05/09/20 20:00 97.8 63 20 131/57 (81) 97 05/09/20 16:00 98.3 91 21 134/69 (90) 97 05/09/20 12:00 97.1 72 21 103/77 (86) 97 05/09/20 10:31 98.7 05/09/20 09:00 75 66 65 05/09/20 09:00 Room Air 05/09/20 08:00 98.7 66 19 102/71 (81) 97 05/09/20 08:00 98.7 75 19 105/65 (78) 97 05/09/20 08:00 98.7 65 19 101/50 (67) 97 05/09/20 08:00 98.7 62 19 112/55 (74) 97 05/09/20 04:00 98.5 61 18 109/54 (72) 94 05/09/20 00:00 98.5 60 18 106/52 (70) 93 ROS: unchanged for my dictation of 05/08/20 HEENT: normal ENT inspection LUNGS: lungs clear bilaterally CARDIAC: normal rate, regular rhythm, normal S1 and S2 ABDOMEN: normal bowel sounds, non tender, soft, no organomegaly EXTREMITIES: normal range of motion, trace edema - right>left, other - right foot wound site with dressing intact Laboratory Tests Test 05/09/20 04:50 Sodium Level 142 MMOL/L (136-145) Potassium Level 4.5 MMOL/L (3.5-5.1) Chloride Level 103 MMOL/L (98-107) Carbon Dioxide Level 27 MMOL/L (21-32) Anion Gap 12 mmol/L (5-15) Blood Urea Nitrogen 54 mg/dL (7-18) H Creatinine 10.9 MG/DL (0.55-1.30) H Estimat Glomerular Filtration Rate 4.6 mL/min (>60) Glucose Level 66 MG/DL (74-106) L Hemoglobin A1c 5.4 % (4.3-6.0) Calcium Level 8.0 MG/DL (8.5-10.1) L Total Bilirubin 1.1 MG/DL (0.2-1.0) H Direct Bilirubin 0.5 MG/DL (0.0-0.3) H Aspartate Amino Transf (AST/SGOT) 58 U/L (15-37) H Alanine Aminotransferase (ALT/SGPT) 27 U/L (12-78) Alkaline Phosphatase 54 U/L (46-116) Total Protein 7.8 G/DL (6.4-8.2) Albumin 2.6 G/DL (3.4-5.0) L Globulin 5.2 g/dL Albumin/Globulin Ratio 0.5 (1.0-2.7) L Triglycerides Level 181 MG/DL (30-150) H Cholesterol Level 109 MG/DL (< 200) LDL Cholesterol 53 mg/dL (<100) HDL Cholesterol 12 MG/DL (40-60) L Cholesterol/HDL Ratio 9.1 (3.3-4.4) H Hepatitis B Surface Antigen Pending Microbiology Date/Time Source Procedure Growth Status 05/08/20 00:00 Blood Blood Culture - Preliminary NO GROWTH AFTER 24 HOURS Resulted 05/07/20 23:45 Blood Blood Culture - Preliminary NO GROWTH AFTER 24 HOURS Resulted 05/08/20 00:00 Nasopharynx SARS-CoV-2 RdRp Gene Assay - Final Complete 05/08/20 01:41 Rectum Received Assessment/Plan Assessment/Plan Ischemic ulcer and cellulitis of right foot with possible sepsis 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
--- NOTE | 2020-05-10 03:00 | Consultation ---
DATE OF CONSULTATION: 05/08/2020 CARDIOLOGY CONSULTATION CONSULTING PHYSICIAN: Connor Swift MD. REFERRING PHYSICIAN: Ulises Forrest MD. REASON FOR CONSULTATION: Hypotension. HISTORY OF PRESENT ILLNESS: This male, aged 75 has end-stage renal disease. He is on hemodialysis. He presented to the hospital complaining of weakness and worsening pain in his foot. He was noted to have low blood pressure. I have been asked to assist with cardiovascular care. PAST MEDICAL HISTORY: Includes: 1. End-stage renal disease on hemodialysis. 2. Type 2 diabetes mellitus. 3. Peripheral artery disease with history of PCI to right foot and ischemic toe on the right. 4. Coronary artery disease. 5. History of myocardial infarction. 6. Cerebrovascular disease. 7. History of cerebrovascular accident. 8. Paroxysmal atrial fibrillation, on amiodarone. 9. Hypothyroidism. 10. Status post left upper extremity AV fistula. ALLERGIES: None. FAMILY HISTORY: Noncontributory. SOCIAL HISTORY: Heavy alcohol use in the past. Quit several years ago. No smoking or substance abuse. MEDICATIONS: Prior to admission, reviewed and reconciled. REVIEW OF SYSTEMS: Cholesterol parameters not known. He is on amiodarone for suppression of atrial fibrillation. He has had an heart attack in the past. He denies recent chest pain. There is no history of heart failure, but ultrafiltration during hemodialysis on a regular basis. He is on thyroid replacement. His diabetes is managed with oral therapy. He obviously has diabetic nephropathy and is on hemodialysis now. There is a history of prior stroke with no obvious residual deficits. There is no history of COPD although he used significant alcohol in the past. There is no known history of liver disease. PHYSICAL EXAMINATION: GENERAL: Moderately obese. No distress. VITAL SIGNS: Afebrile, blood pressure 89/41, heart rate 57, respirations 20. HEENT: Conjunctivae are pink. Oropharynx clear. NECK: Supple. LUNGS: Clear. Bruit over left upper extremity. CARDIAC: Regular rhythm rate. Normal S1, S2 with a fourth heart sound. ABDOMEN: Soft, nontender. No organomegaly. EXTREMITIES: With trace edema on the right. The foot is with dressing. There appears to be ulcer on the first toe. Pulses are not palpable. Digits are pink. EKG with sinus rhythm, nonspecific ST change. LABORATORY DATA: Reviewed. IMPRESSION: 1. Hypotension, likely due to medications and mild hypovolemia in the setting of possible early sepsis. 2. Peripheral artery disease. 3. Ischemic right foot. 4. Cellulitis. 5. Possible osteomyelitis. 6. Paroxysmal atrial fibrillation, suppressed on amiodarone. 7. Coronary artery disease with stable angina and history of myocardial infarction. 8. Diabetes mellitus with complications. 9. Hypothyroidism, on replacement therapy and this may be due to amiodarone. PLAN: 1. Hold all antihypertensives. 2. Fluid challenge for hypotension that is recurrent. 3. Check lipid panel, thyroid panel. Adjust therapy accordingly. 4. Skin care. 5. Antimicrobials. 6. Imaging studies to evaluate for osteomyelitis. 7. Vascular studies to evaluate for adequate perfusion. 8. Continue anti-platelet therapy. 9. Reassess for statin drugs. 10. Maintenance dose amiodarone with precautions. Connor Swift M.D. DR: BARRY JOB#: [id number] CC:
[2020-05-10 04:00] VITALS: BP 114/57
[2020-05-10] MEDS: sitaGLIPtin 25mg tab ORAL SCH (06:08)
[2020-05-10 06:41] LABS: BASOPHILS % (AUTO) 1.3 % (0.0-2.0); EOSINOPHILS % (AUTO) 0.4 % (0.0-3.0); HEMATOCRIT 38.7 % (42.0-52.0); HEMOGLOBIN 12.1 G/DL (14.2-18.0); LYMPHOCYTES % (AUTO) 16.7 % (20.0-45.0); MEAN CORPUSCULAR VOLUME 104 FL (80-99); MONOCYTES % (AUTO) 10.7 % (1.0-10.0); PLATELET COUNT 306 K/UL (150-450); RED BLOOD COUNT 3.73 M/UL (4.70-6.10); RED CELL DISTRIBUTION WIDTH 14.2 % (11.6-14.8)
[2020-05-10 07:16] LABS: ALANINE AMINOTRANSFERASE 28 U/L (12-78); ALBUMIN 2.7 G/DL (3.4-5.0); ALBUMIN/GLOBULIN RATIO 0.5 (1.0-2.7); ALKALINE PHOSPHATASE 59 U/L (46-116); ANION GAP 14 mmol/L (5-15); ASPARTATE AMINO TRANSFERASE 56 U/L (15-37); BLOOD UREA NITROGEN 41 mg/dL (7-18); CALCIUM 7.7 MG/DL (8.5-10.1); CARBON DIOXIDE 23 MMOL/L (21-32); CHLORIDE 97 MMOL/L (98-107); CREATININE 8.3 MG/DL (0.55-1.30); POTASSIUM 4.3 MMOL/L (3.5-5.1); SODIUM 134 MMOL/L (136-145)
[2020-05-10 08:00] VITALS: BP 131/65
[2020-05-10] MEDS: Amiodarone 200mg tab ORAL SCH (08:14)
[2020-05-10] MEDS: Heparin 5000 units/ml inj SUBQ SCH ×2 (08:17→20:32)
--- NOTE | 2020-05-10 09:33 | General Progress Note ---
Assessment/Plan Problem List: (1) Foot ulcer ICD Codes: L97.509 - Non-pressure chronic ulcer of other part of unspecified foot with unspecified severity SNOMED: 41006153 (2) ESRD (end stage renal disease) on dialysis ICD Codes: N18.6 - End stage renal disease; Z99.2 - Dependence on renal dialysis SNOMED: 893924830 (3) Heat exhaustion ICD Codes: T67.5XXA - Heat exhaustion, unspecified, initial encounter SNOMED: 18919359 Qualifiers: Qualified Codes: T67.5XXA - Heat exhaustion, unspecified, initial encounter (4) Episode of generalized weakness ICD Codes: R53.1 - Weakness SNOMED: 87006946 (5) Transient hypotension ICD Codes: I95.9 - Hypotension, unspecified SNOMED: 05007323881936 Status: stable Assessment/Plan: podiatry and wound evals hold bp meds check orthostatics consider midodrine if bp low or orthostatic HD per renal increase synthroid PT eval dc planning with home health outpt vascular eval Subjective ROS Limited/Unobtainable: No Constitutional: Reports: malaise, weakness HEENT: Reports: no symptoms Cardiovascular: Reports: no symptoms Respiratory: Reports: no symptoms Gastrointestinal/Abdominal: Reports: no symptoms Genitourinary: Reports: no symptoms Neurologic/Psychiatric: Reports: no symptoms Endocrine: Reports: no symptoms Hematologic/Lymphatic: Reports: no symptoms Allergies: Coded Allergies: No Known Allergies (Unverified , 05/07/20) All Systems: reviewed and negative except above Subjective no complaints. bp improved. no fevers or chills. no chest pain vascular studies normal. TSH 45. MRI neg for osteo Objective Last 24 Hour Vital Signs Date Time Temp Pulse Resp B/P (MAP) Pulse Ox O2 Delivery O2 Flow Rate FiO2 05/10/20 09:00 Room Air 05/10/20 08:00 97.8 63 20 131/65 (87) 97 05/10/20 04:00 98.2 69 20 114/57 (76) 97 05/09/20 21:00 67 63 63 05/09/20 21:00 Room Air 05/09/20 20:00 97.8 63 20 131/57 (81) 97 05/09/20 16:00 98.3 91 21 134/69 (90) 97 05/09/20 12:00 97.1 72 21 103/77 (86) 97 05/09/20 10:31 98.7 Intake and Output 05/09/20 05/10/20 19:00 07:00 Intake Total 500 ml 100 ml Output Total 500 ml Balance 0 ml 100 ml Intake Oral 500 ml 100 ml Hemodialysis UF 500 ml # Voids 2 # Bowel Movements 1 Laboratory Tests 05/10/20 05:15: White Blood Count 8.0, Red Blood Count 3.73L, Hemoglobin 12.1L, Hematocrit 38.7L , Mean Corpuscular Volume 104H, Mean Corpuscular Hemoglobin 32.4H, Mean Corpuscular Hemoglobin Concent 31.2L, Red Cell Distribution Width 14.2, Platelet Count 306, Mean Platelet Volume 5.8L, Neutrophils (%) (Auto) 71.0, Lymphocytes (%) (Auto) 16.7L, Monocytes (%) (Auto) 10.7H, Eosinophils (%) (Auto ) 0.4, Basophils (%) (Auto) 1.3, Sodium Level 134L, Potassium Level 4.3, Chloride Level 97L, Carbon Dioxide Level 23, Anion Gap 14, Blood Urea Nitrogen 41H, Creatinine 8.3H, Estimat Glomerular Filtration Rate 6.3, Glucose Level 82, Calcium Level 7.7L, Total Bilirubin 1.0, Aspartate Amino Transf (AST/SGOT) 56H, Alanine Aminotransferase (ALT/SGPT) 28, Alkaline Phosphatase 59, Pro-B-Type Natriuretic Peptide 69792X, Total Protein 8.1, Albumin 2.7L, Globulin 5.4, Albumin/Globulin Ratio 0.5L, Thyroid Stimulating Hormone (TSH) 45.896H Height (Feet): 5 Height (Inches): 7.00 Weight (Pounds): 184 Objective General Appearance: WD/WN, alert Neck: supple Cardiovascular: normal rate Respiratory/Chest: chest wall non-tender, lungs clear, normal breath sounds Abdomen: normal bowel sounds, non tender, soft, no organomegaly Edema: no edema noted Arm (L), no edema noted Arm (R) 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
[2020-05-10 12:00] VITALS: BP 133/66
--- NOTE | 2020-05-10 15:06 | Surgery Progress Note ---
Surgery Progress Note Subjective Symptoms: improved, tolerating diet, passing flatus Objective Last 24 Hour Vital Signs Date Time Temp Pulse Resp B/P (MAP) Pulse Ox O2 Delivery O2 Flow Rate FiO2 05/10/20 12:00 97.7 59 20 133/66 (88) 98 05/10/20 09:00 67 63 63 05/10/20 09:00 Room Air 05/10/20 08:00 97.8 63 20 131/65 (87) 97 05/10/20 04:00 98.2 69 20 114/57 (76) 97 05/09/20 21:00 67 63 63 05/09/20 21:00 Room Air 05/09/20 20:00 97.8 63 20 131/57 (81) 97 05/09/20 16:00 98.3 91 21 134/69 (90) 97 I&O Intake and Output 05/09/20 05/10/20 19:00 07:00 Intake Total 500 ml 100 ml Output Total 500 ml Balance 0 ml 100 ml Intake Oral 500 ml 100 ml Hemodialysis UF 500 ml # Voids 2 # Bowel Movements 1 Dressing: dry Wound: clean Cardiovascular: RSR Respiratory: clear Abdomen: soft, non-tender, present bowel sounds Extremities: no tenderness, no cyanosis Laboratory Tests Test 05/10/20 05:15 White Blood Count 8.0 K/UL (4.8-10.8) Red Blood Count 3.73 M/UL (4.70-6.10) L Hemoglobin 12.1 G/DL (14.2-18.0) L Hematocrit 38.7 % (42.0-52.0) L Mean Corpuscular Volume 104 FL (80-99) H Mean Corpuscular Hemoglobin 32.4 PG (27.0-31.0) H Mean Corpuscular Hemoglobin Concent 31.2 G/DL (32.0-36.0) L Red Cell Distribution Width 14.2 % (11.6-14.8) Platelet Count 306 K/UL (150-450) Mean Platelet Volume 5.8 FL (6.5-10.1) L Neutrophils (%) (Auto) 71.0 % (45.0-75.0) Lymphocytes (%) (Auto) 16.7 % (20.0-45.0) L Monocytes (%) (Auto) 10.7 % (1.0-10.0) H Eosinophils (%) (Auto) 0.4 % (0.0-3.0) Basophils (%) (Auto) 1.3 % (0.0-2.0) Sodium Level 134 MMOL/L (136-145) L Potassium Level 4.3 MMOL/L (3.5-5.1) Chloride Level 97 MMOL/L (98-107) L Carbon Dioxide Level 23 MMOL/L (21-32) Anion Gap 14 mmol/L (5-15) Blood Urea Nitrogen 41 mg/dL (7-18) H Creatinine 8.3 MG/DL (0.55-1.30) H Estimat Glomerular Filtration Rate 6.3 mL/min (>60) Glucose Level 82 MG/DL (74-106) Calcium Level 7.7 MG/DL (8.5-10.1) L Total Bilirubin 1.0 MG/DL (0.2-1.0) Aspartate Amino Transf (AST/SGOT) 56 U/L (15-37) H Alanine Aminotransferase (ALT/SGPT) 28 U/L (12-78) Alkaline Phosphatase 59 U/L (46-116) Pro-B-Type Natriuretic Peptide 26183 pg/mL (0-125) H Total Protein 8.1 G/DL (6.4-8.2) Albumin 2.7 G/DL (3.4-5.0) L Globulin 5.4 g/dL Albumin/Globulin Ratio 0.5 (1.0-2.7) L Thyroid Stimulating Hormone (TSH) 45.896 uiU/mL (0.358-3.740) Plan Problems: (1) Diabetic ulcer of right lower leg Assessment & Plan: Patient with a diabetic ischemic ulcer right lower extremity medial aspect distal. Wound is fairly chronic and is receiving care at home and guidance of a wound team. Currently no active drainage. Dermal loss with some necrosis. Area approximately 10 cm x 5 cm few millimeters deep. Fortunately no exposed tendon or muscle. No signs of active infection. Wash lower extremity daily with normal saline. Apply Thera honey followed by nonadherent dressing and wrap with gauze. keep extremity elevated when possible nutritional optimization DM control DAILY ESTIMATED NEEDS: Needs based on ESRD on HD, obese. foot ulcer 65.6kg abw 25-30 kcals/kg [id number] total kcals 1.25-1.8 g protein/kg 82-118 g total protein Fluid per MD, on HD NUTRITION DIAGNOSIS: Increased pro needs r/t renal dysfunction and wound healing as evidenced by DM R foot ulcer, pt w/ ESRD on HD. CURRENT DIET:Renal PO DIET RECOMMENDATIONS: RENAL/ CARDIAC DIET ADDITIONAL RECOMMENDATIONS: 1) Accuchecks q4, noted hypoglycemic event 05/09 2) Add high pro snack in b.w meals 3) Wound care: add HOLA BID Vit C per nephro , Add nephrovite qdaily 4) Obtain a calibrated bed scale wt post HD (2) ESRD (end stage renal disease) on dialysis (3) Heat exhaustion (4) Foot ulcer Assessment & Plan: out pt vascular eval for angio MRI noted cont local care Marker vargas the area of open wound on the plantar surface of the great toe below the interphalangeal joint. There is questionably mildly increased STIR signal at the periphery of the distal phalanx, without corresponding T1 abnormality. The proximal phalanx and the metatarsals demonstrate normal marrow signal. No marrow signal abnormality is seen in the remainder of the digits. The foot is diffusely edematous, most notably in the dorsal subcutaneous fat but also in the deeper soft tissues. No discrete fluid collections to suggest drainable abscess demonstrated. Impression: Mildly increased STIR signal within the first distal phalanx, without evidence of T1 signal abnormality. Most likely reactive, but could also represent very early osteomyelitis changes. No other marrow signal abnormality to suggest acute osteomyelitis Diffuse soft tissue edema. This could be on the basis of cellulitis or could represent edema due to hemodynamic derangements. Diffuse atherosclerosis in the visualized arterial segments throughout bilateral lower extremities. Right common femoral artery: No occlusion or significant stenosis on color flow and spectral Doppler imaging. Peak systolic velocity of 56 cm/s. Normal multiphasic waveform. Right superficial femoral artery: No occlusion or significant stenosis on color flow and spectral Doppler imaging. Peak systolic velocity of 64 cm/s. Normal multiphasic waveform. Right popliteal artery: No occlusion or significant stenosis on color flow and spectral Doppler imaging. Peak systolic velocity of 58 cm/s. Normal multiphasic waveform. Right calf/foot arteries: Right calf/foot were completely covered with dressings and unable to evaluate. Left common femoral artery: No occlusion or significant stenosis on color flow and spectral Doppler imaging. Peak systolic velocity of 54 cm/s. Normal multiphasic waveform. Left superficial femoral artery: No occlusion or significant stenosis on color flow and spectral Doppler imaging. Peak systolic velocity of 68 cm/s. Normal multiphasic waveform. Left popliteal artery: No occlusion or significant stenosis on color flow and spectral Doppler imaging. Peak systolic velocity of 40 cm/s. Normal multiphasic waveform. Left calf/foot arteries: No occlusion or significant stenosis on color flow and spectral Doppler imaging. Monophasic waveform. Soft tissues: Unremarkable. Degree of stenosis-estimate 30-50%: 150-200 cm/s 50-75%: 200-400 cm/s >75%: >400 cm/s and monophasic waveform IMPRESSION: 1. Diffuse atherosclerosis in bilateral lower extremities, consistent with peripheral vascular disease. No significant focal stenosis in the visualized arterial segments bilaterally. 2. Unable to evaluate the right calf/foot arteries since the right lower extremity was completely covered in dressings and stretcher leveler operator was unable to image the calf/foot vessels. (5) Episode of generalized weakness (6) Transient hypotension William Howell May 10, 2020 15:06
[2020-05-10 16:00] VITALS: BP 128/62
--- NOTE | 2020-05-10 18:08 | Nephrology Progress Note ---
Assessment/Plan Problem List: (1) ESRD (end stage renal disease) on dialysis (2) Heat exhaustion (3) Foot ulcer (4) Episode of generalized weakness (5) Transient hypotension (6) Diabetic ulcer of right lower leg Plan HD 05/09 bp better, mri noted, keep off nifedipine, Subjective Constitutional: Reports: weakness HEENT: Reports: no symptoms Genitourinary: Reports: no symptoms Neurologic/Psychiatric: Reports: no symptoms Objective Objective Last 24 Hour Vital Signs Date Time Temp Pulse Resp B/P (MAP) Pulse Ox O2 Delivery O2 Flow Rate FiO2 05/10/20 16:00 97.7 60 20 128/62 (84) 98 05/10/20 12:00 97.7 59 20 133/66 (88) 98 05/10/20 09:00 67 63 63 05/10/20 09:00 Room Air 05/10/20 08:00 97.8 63 20 131/65 (87) 97 05/10/20 04:00 98.2 69 20 114/57 (76) 97 05/09/20 21:00 67 63 63 05/09/20 21:00 Room Air 05/09/20 20:00 97.8 63 20 131/57 (81) 97 Intake and Output 05/09/20 05/10/20 19:00 07:00 Intake Total 500 ml 100 ml Output Total 500 ml Balance 0 ml 100 ml Intake Oral 500 ml 100 ml Hemodialysis UF 500 ml # Voids 2 # Bowel Movements 1 Laboratory Tests 05/10/20 05:15: White Blood Count 8.0, Red Blood Count 3.73L, Hemoglobin 12.1L, Hematocrit 38.7L , Mean Corpuscular Volume 104H, Mean Corpuscular Hemoglobin 32.4H, Mean Corpuscular Hemoglobin Concent 31.2L, Red Cell Distribution Width 14.2, Platelet Count 306, Mean Platelet Volume 5.8L, Neutrophils (%) (Auto) 71.0, Lymphocytes (%) (Auto) 16.7L, Monocytes (%) (Auto) 10.7H, Eosinophils (%) (Auto ) 0.4, Basophils (%) (Auto) 1.3, Sodium Level 134L, Potassium Level 4.3, Chloride Level 97L, Carbon Dioxide Level 23, Anion Gap 14, Blood Urea Nitrogen 41H, Creatinine 8.3H, Estimat Glomerular Filtration Rate 6.3, Glucose Level 82, Calcium Level 7.7L, Total Bilirubin 1.0, Aspartate Amino Transf (AST/SGOT) 56H, Alanine Aminotransferase (ALT/SGPT) 28, Alkaline Phosphatase 59, Pro-B-Type Natriuretic Peptide 51264K, Total Protein 8.1, Albumin 2.7L, Globulin 5.4, Albumin/Globulin Ratio 0.5L, Thyroid Stimulating Hormone (TSH) 45.896H Height (Feet): 5 Height (Inches): 7.00 Weight (Pounds): 184 General Appearance: no apparent distress, obese EENT: normal ENT inspection Neck: normal alignment Cardiovascular: regular rhythm Respiratory/Chest: lungs clear Abdomen: non tender, soft Extremities: no edema 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
[2020-05-10 20:00] VITALS: BP 131/57
[2020-05-11] VITALS: BP 143/64
--- NOTE | 2020-05-11 02:29 | Cardiology Progress Note ---
Subjective DATE OF SERVICE: May 10, 2020 C/O foot pain BP parameters now normalizing - but patient remains off antiHTN meds MRI negative for osteomyelitis Arterial duplex suboptimal due to dressings on wounds, but grossly without obstruction. Lipid panel noted; TSH is 45. Objective Last 24 Hour Vital Signs Date Time Temp Pulse Resp B/P (MAP) Pulse Ox O2 Delivery O2 Flow Rate FiO2 05/11/20 00:00 97.7 54 16 143/64 (90) 97 05/10/20 21:00 Room Air 05/10/20 21:00 62 63 70 05/10/20 20:00 97.4 62 16 131/57 (81) 99 05/10/20 16:00 97.7 60 20 128/62 (84) 98 05/10/20 12:00 97.7 59 20 133/66 (88) 98 05/10/20 09:00 67 63 63 05/10/20 09:00 Room Air 05/10/20 08:00 97.8 63 20 131/65 (87) 97 05/10/20 04:00 98.2 69 20 114/57 (76) 97 ROS: unchanged for my dictation of 05/08/20 HEENT: normal ENT inspection LUNGS: lungs clear bilaterally CARDIAC: normal rate, regular rhythm, normal S1 and S2 ABDOMEN: normal bowel sounds, non tender, soft, no organomegaly EXTREMITIES: normal range of motion, trace edema - right>left, other - right foot wound site with dressing intact Laboratory Tests Test 05/10/20 05:15 White Blood Count 8.0 K/UL (4.8-10.8) Red Blood Count 3.73 M/UL (4.70-6.10) L Hemoglobin 12.1 G/DL (14.2-18.0) L Hematocrit 38.7 % (42.0-52.0) L Mean Corpuscular Volume 104 FL (80-99) H Mean Corpuscular Hemoglobin 32.4 PG (27.0-31.0) H Mean Corpuscular Hemoglobin Concent 31.2 G/DL (32.0-36.0) L Red Cell Distribution Width 14.2 % (11.6-14.8) Platelet Count 306 K/UL (150-450) Mean Platelet Volume 5.8 FL (6.5-10.1) L Neutrophils (%) (Auto) 71.0 % (45.0-75.0) Lymphocytes (%) (Auto) 16.7 % (20.0-45.0) L Monocytes (%) (Auto) 10.7 % (1.0-10.0) H Eosinophils (%) (Auto) 0.4 % (0.0-3.0) Basophils (%) (Auto) 1.3 % (0.0-2.0) Sodium Level 134 MMOL/L (136-145) L Potassium Level 4.3 MMOL/L (3.5-5.1) Chloride Level 97 MMOL/L (98-107) L Carbon Dioxide Level 23 MMOL/L (21-32) Anion Gap 14 mmol/L (5-15) Blood Urea Nitrogen 41 mg/dL (7-18) H Creatinine 8.3 MG/DL (0.55-1.30) H Estimat Glomerular Filtration Rate 6.3 mL/min (>60) Glucose Level 82 MG/DL (74-106) Calcium Level 7.7 MG/DL (8.5-10.1) L Total Bilirubin 1.0 MG/DL (0.2-1.0) Aspartate Amino Transf (AST/SGOT) 56 U/L (15-37) H Alanine Aminotransferase (ALT/SGPT) 28 U/L (12-78) Alkaline Phosphatase 59 U/L (46-116) Pro-B-Type Natriuretic Peptide 95630 pg/mL (0-125) H Total Protein 8.1 G/DL (6.4-8.2) Albumin 2.7 G/DL (3.4-5.0) L Globulin 5.4 g/dL Albumin/Globulin Ratio 0.5 (1.0-2.7) L Thyroid Stimulating Hormone (TSH) 45.896 uiU/mL (0.358-3.740) Assessment/Plan Assessment/Plan Ischemic ulcer and cellulitis of right foot with possible sepsis 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
[2020-05-11 04:00] VITALS: BP 128/66
[2020-05-11] MEDS: sitaGLIPtin 25mg tab ORAL SCH (05:55)
[2020-05-11 08:00] VITALS: BP 127/59
[2020-05-11] MEDS ORDERED: Heparin Sod 1000 units/ml 10ml IV PRN (08:00)
[2020-05-11] MEDS: Heparin 5000 units/ml inj SUBQ SCH (09:00)
[2020-05-11] MEDS: Amiodarone 200mg tab ORAL SCH (09:52)
--- NOTE | 2020-05-11 10:33 | Surgery Progress Note ---
Surgery Progress Note Subjective Symptoms: improved, tolerating diet, passing flatus, BM Objective Last 24 Hour Vital Signs Date Time Temp Pulse Resp B/P (MAP) Pulse Ox O2 Delivery O2 Flow Rate FiO2 05/11/20 09:00 62 62 68 05/11/20 09:00 Room Air 05/11/20 08:00 97.8 62 17 127/59 (81) 96 05/11/20 04:00 98.2 58 16 128/66 (86) 98 05/11/20 00:00 97.7 54 16 143/64 (90) 97 05/10/20 21:00 Room Air 05/10/20 21:00 62 63 70 05/10/20 20:00 97.4 62 16 131/57 (81) 99 05/10/20 16:00 97.7 60 20 128/62 (84) 98 05/10/20 12:00 97.7 59 20 133/66 (88) 98 I&O Intake and Output 05/10/20 05/11/20 19:00 07:00 Intake Total 360 ml Balance 360 ml Intake Oral 360 ml # Voids 1 2 # Bowel Movements 1 Dressing: dry Wound: clean Cardiovascular: RSR Respiratory: clear Abdomen: soft, non-tender, present bowel sounds Extremities: no edema, no tenderness, no cyanosis, pulses, other Plan Problems: (1) Diabetic ulcer of right lower leg Assessment & Plan: Patient with a diabetic ischemic ulcer right lower extremity medial aspect distal. Wound is fairly chronic and is receiving care at home and guidance of a wound team. Currently no active drainage. Dermal loss with some necrosis. Area approximately 10 cm x 5 cm few millimeters deep. Fortunately no exposed tendon or muscle. No signs of active infection. Wash lower extremity daily with normal saline. Apply Thera honey followed by nonadherent dressing and wrap with gauze. keep extremity elevated when possible nutritional optimization DM control DAILY ESTIMATED NEEDS: Needs based on ESRD on HD, obese. foot ulcer 65.6kg abw 25-30 kcals/kg [id number] total kcals 1.25-1.8 g protein/kg 82-118 g total protein Fluid per MD, on HD NUTRITION DIAGNOSIS: Increased pro needs r/t renal dysfunction and wound healing as evidenced by DM R foot ulcer, pt w/ ESRD on HD. CURRENT DIET:Renal PO DIET RECOMMENDATIONS: RENAL/ CARDIAC DIET ADDITIONAL RECOMMENDATIONS: 1) Accuchecks q4, noted hypoglycemic event 05/09 2) Add high pro snack in b.w meals 3) Wound care: add HOLA BID Vit C per nephamanda BARRERA, Add nephrovite qdaily 4) Obtain a calibrated bed scale wt post HD (2) ESRD (end stage renal disease) on dialysis (3) Heat exhaustion (4) Foot ulcer Assessment & Plan: out pt vascular eval for angio MRI noted cont local care Marker vargas the area of open wound on the plantar surface of the great toe below the interphalangeal joint. There is questionably mildly increased STIR signal at the periphery of the distal phalanx, without corresponding T1 abnormality. The proximal phalanx and the metatarsals demonstrate normal marrow signal. No marrow signal abnormality is seen in the remainder of the digits. The foot is diffusely edematous, most notably in the dorsal subcutaneous fat but also in the deeper soft tissues. No discrete fluid collections to suggest drainable abscess demonstrated. Impression: Mildly increased STIR signal within the first distal phalanx, without evidence of T1 signal abnormality. Most likely reactive, but could also represent very early osteomyelitis changes. No other marrow signal abnormality to suggest acute osteomyelitis Diffuse soft tissue edema. This could be on the basis of cellulitis or could represent edema due to hemodynamic derangements. Diffuse atherosclerosis in the visualized arterial segments throughout bilateral lower extremities. Right common femoral artery: No occlusion or significant stenosis on color flow and spectral Doppler imaging. Peak systolic velocity of 56 cm/s. Normal multiphasic waveform. Right superficial femoral artery: No occlusion or significant stenosis on color flow and spectral Doppler imaging. Peak systolic velocity of 64 cm/s. Normal multiphasic waveform. Right popliteal artery: No occlusion or significant stenosis on color flow and spectral Doppler imaging. Peak systolic velocity of 58 cm/s. Normal multiphasic waveform. Right calf/foot arteries: Right calf/foot were completely covered with dressings and unable to evaluate. Left common femoral artery: No occlusion or significant stenosis on color flow and spectral Doppler imaging. Peak systolic velocity of 54 cm/s. Normal multiphasic waveform. Left superficial femoral artery: No occlusion or significant stenosis on color flow and spectral Doppler imaging. Peak systolic velocity of 68 cm/s. Normal multiphasic waveform. Left popliteal artery: No occlusion or significant stenosis on color flow and spectral Doppler imaging. Peak systolic velocity of 40 cm/s. Normal multiphasic waveform. Left calf/foot arteries: No occlusion or significant stenosis on color flow and spectral Doppler imaging. Monophasic waveform. Soft tissues: Unremarkable. Degree of stenosis-estimate 30-50%: 150-200 cm/s 50-75%: 200-400 cm/s >75%: >400 cm/s and monophasic waveform IMPRESSION: 1. Diffuse atherosclerosis in bilateral lower extremities, consistent with peripheral vascular disease. No significant focal stenosis in the visualized arterial segments bilaterally. 2. Unable to evaluate the right calf/foot arteries since the right lower extremity was completely covered in dressings and automation tender was unable to image the calf/foot vessels. (5) Episode of generalized weakness (6) Transient hypotension William Howell May 11, 2020 10:33
[2020-05-11] MEDS: HYDROcodone/Acetamin 10/325 tab ORAL PRN (10:59)
--- NOTE | 2020-05-11 11:36 | Nephrology Progress Note ---
Assessment/Plan Problem List: (1) ESRD (end stage renal disease) on dialysis (2) Heat exhaustion (3) Foot ulcer (4) Episode of generalized weakness (5) Transient hypotension (6) Diabetic ulcer of right lower leg Plan HD 05/09 +9/*10 bp better, mri noted, keep off nifedipine, Subjective Constitutional: Reports: weakness HEENT: Reports: no symptoms Genitourinary: Reports: no symptoms Neurologic/Psychiatric: Reports: no symptoms Objective Objective Last 24 Hour Vital Signs Date Time Temp Pulse Resp B/P (MAP) Pulse Ox O2 Delivery O2 Flow Rate FiO2 05/11/20 09:00 62 62 68 05/11/20 09:00 Room Air 05/11/20 08:00 97.8 62 17 127/59 (81) 96 05/11/20 04:00 98.2 58 16 128/66 (86) 98 05/11/20 00:00 97.7 54 16 143/64 (90) 97 05/10/20 21:00 Room Air 05/10/20 21:00 62 63 70 05/10/20 20:00 97.4 62 16 131/57 (81) 99 05/10/20 16:00 97.7 60 20 128/62 (84) 98 05/10/20 12:00 97.7 59 20 133/66 (88) 98 Intake and Output 05/10/20 05/11/20 19:00 07:00 Intake Total 360 ml Balance 360 ml Intake Oral 360 ml # Voids 1 2 # Bowel Movements 1 Height (Feet): 5 Height (Inches): 7.00 Weight (Pounds): 184 General Appearance: obese EENT: normal ENT inspection Cardiovascular: normal rate, regular rhythm Respiratory/Chest: lungs clear Abdomen: non tender Extremities: no edema 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
[2020-05-11 12:00] VITALS: BP 128/65
[2020-05-11 16:00] VITALS: BP 141/64
[2020-05-11] MEDS ORDERED: PACERONE200 MG ORAL (16:43)
[2020-05-11] MEDS ORDERED: PRAVACHOL20 MG ORAL (16:43)
[2020-05-11] MEDS ORDERED: LEVOTHYROXINE75 MCG ORAL (16:43)
[2020-05-11] MEDS ORDERED: JANUVIA25 MG ORAL (16:43)
--- NOTE | 2020-05-11 18:23 | Cardiology Progress Note ---
Subjective DATE OF SERVICE: May 11, 2020 s/p HD with 1.5 liter UF today. BP parameters now normalizing - but patient remains off antiHTN meds MRI negative for osteomyelitis Arterial duplex suboptimal due to dressings on wounds, but grossly without obstruction. Lipid panel noted; TSH is 45. Objective Last 24 Hour Vital Signs Date Time Temp Pulse Resp B/P (MAP) Pulse Ox O2 Delivery O2 Flow Rate FiO2 05/11/20 16:00 97.8 58 20 141/64 (89) 100 05/11/20 12:00 97.9 62 19 128/65 (86) 98 05/11/20 09:00 62 62 68 05/11/20 09:00 Room Air 05/11/20 08:00 97.8 62 17 127/59 (81) 96 05/11/20 04:00 98.2 58 16 128/66 (86) 98 05/11/20 00:00 97.7 54 16 143/64 (90) 97 05/10/20 21:00 Room Air 05/10/20 21:00 62 63 70 05/10/20 20:00 97.4 62 16 131/57 (81) 99 ROS: unchanged for my dictation of 05/08/20 HEENT: normal ENT inspection LUNGS: lungs clear bilaterally CARDIAC: normal rate, regular rhythm, normal S1 and S2 ABDOMEN: normal bowel sounds, non tender, soft, no organomegaly EXTREMITIES: normal range of motion, trace edema - right>left, other - right foot wound site with dressing intact Assessment/Plan Assessment/Plan Ischemic ulcer and cellulitis of right foot with possible sepsis 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
--- NOTE | 2020-05-11 21:30 | Discharge Summary ---
DATE OF ADMISSION: 05/08/2020 DATE OF DISCHARGE: 05/11/2020 ADMISSION DIAGNOSES: 1. Near syncope. 2. Hypotension. 3. End-stage renal disease. 4. Diabetes. 5. Dehydration. 6. Possible heat stroke. DISCHARGE DIAGNOSES: 1. Near syncope. 2. Hypotension. 3. End-stage renal disease. 4. Diabetes. 5. Dehydration. 6. Possible heat stroke. HOSPITAL COURSE: Patient is a 75-year-old male with a history of end-stage renal disease, hypertension, and diabetes presented with complaints of dehydration, possible heat stroke. He was admitted. He received a small amount of intravenous fluids. He underwent hemodialysis. He was noted to have an ulcer on the right first toe. He had an MRI that showed no signs of osteo. Vascular studies were unremarkable. Podiatry, Cardiology, and Renal consultations were all obtained. Patient's antihypertensive regimen was decreased and on discharge he was stable. DISPOSITION: He will be discharged home with home health. DISCHARGE MEDICATIONS: Please see discharge medication list for discharge medications. DIET: Cardiac diabetic renal diet. ACTIVITIES: Ad-zackary. FOLLOWUP: Patient will be followed up in 1 to 2 weeks in the office. Ulises Forrest M.D. DR: LICO JOB#: [id number] CC:
--- NOTE | 2020-05-12 10:38 | Cardiology Report ---
APPROVED REPORT EKG Measurement Heart [id number] <Conclusion> Normal sinus rhythm Left axis deviation Abnormal ECG
== END 2020-05-11 19:08 | disposition home health service (06) | DRG 922 ==
LOC: EDBD 23:48 → EMR 05-08 00:12 → 3E 05-08 01:07 → EDBEDREQSVC 05-08 01:29 → EDBEDREQ 05-08 01:35
DX: T67.01XA Heatstroke and sunstroke, initial encounter (principal); N18.6 End stage renal disease; I12.0 Hypertensive chronic kidney disease with stage 5 chronic kidney disease or end stage renal disease; E11.621 Type 2 diabetes mellitus with foot ulcer; L97.519 Non-pressure chronic ulcer of other part of right foot with unspecified severity; X30.XXXA Exposure to excessive natural heat, initial encounter; Y92.009 Unspecified place in unspecified non-institutional (private) residence as the place of occurrence of the external cause; I95.9 Hypotension, unspecified; E86.0 Dehydration; Z99.2 Dependence on renal dialysis; L97.511 Non-pressure chronic ulcer of other part of right foot limited to breakdown of skin; F10.11 Alcohol abuse, in remission; E03.9 Hypothyroidism, unspecified; Z86.73 Personal history of transient ischemic attack (TIA), and cerebral infarction without residual deficits; I48.0 Paroxysmal atrial fibrillation; E11.51 Type 2 diabetes mellitus with diabetic peripheral angiopathy without gangrene; I25.2 Old myocardial infarction; I25.118 Atherosclerotic heart disease of native coronary artery with other forms of angina pectoris
CPT/HCPCS: 36415; 71045; 80048; 80053; 80061; 82248; 83036; 83880; 84443; 84484; 85025; 86706; 87040; 87081; 93005; 93306; 93925; 99285; U0002